=== PATIENT | female | born 1995 | race Caucasian/White ===

== ENCOUNTER → 2018-08-21 09:17 | Outpatient (CLI) | payer OTHER, SELFPAY ==
[2014-12-12 08:57] VITALS: BMI 23.3
[2018-08-21 12:51] LABS: T4 Free Direct 1.11 ng/dL (0.76-1.46); Thyroid Stim Hormone (TSH) 3.84 uIU/mL (0.358-3.74)
== END ==
PROVIDERS: Family Provider Family Medicine; PCP Family Medicine; Referring Provider Family Medicine; Visit Provider Family Medicine
DX: E03.9 Hypothyroidism, unspecified (principal)
CPT/HCPCS: 36415; 84439; 84443

== ENCOUNTER → 2018-11-21 | Outpatient (CLI) | payer OTHER, SELFPAY ==
[2014-12-12 08:57] VITALS: BMI 23.3
[2018-11-21 12:59] LABS: T4 Free Direct 1.56 ng/dL (0.76-1.46); Thyroid Stim Hormone (TSH) 0.09 uIU/mL (0.358-3.74)
== END | disposition home or self-care (01) ==
LOC: MTLAB 10:42
PROVIDERS: Family Provider Family Medicine; PCP Family Medicine; Referring Provider Family Medicine; Visit Provider Family Medicine
DX: E03.9 Hypothyroidism, unspecified (principal)
CPT/HCPCS: 36415; 84439; 84443